=== PATIENT | female | born 1955 | race Two or more races ===

== ENCOUNTER 2022-05-07 14:50 | Outpatient (CLI) | payer MEDICARE, BC | END 2022-05-07 23:59 | disposition home or self-care (01) | LOC: RAD 14:50 | PROVIDERS: ATTEND Allergy & Immunology | DX: J32.0 Chronic maxillary sinusitis (principal); J34.89 Other specified disorders of nose and nasal sinuses; J34.2 Deviated nasal septum | CPT/HCPCS: 70486 ==